=== PATIENT | female | born 1995 | race Caucasian/White ===

== ENCOUNTER 2019-07-01 11:05 | Emergency (ER) | payer OTHER ==
[2019-07-01 11:11] VITALS: BP 107/59; PULSE 61; TEMP 98.4; BMI 28.3
--- NOTE | 2019-07-01 11:53 | PDOC ---
History of Present Illness - General Chief Complaint: Sore Throat Stated Complaint: SORE THROAT Time Seen by Provider: 07/01/19 11:22 History Source: Patient - History of Present Illness Timing/Duration: reports: other Past History - Past Medical History Allergies/Adverse Reactions: Allergies Allergy/AdvReac Type Severity Reaction Status Date / Time No Known Allergies Allergy Verified 07/01/19 11:11 Home Medications: Ambulatory Orders Amoxicillin - [Amoxicillin 500mg Capsule -] 500 mg PO BID #14 capsule 07/01/19 COPD: No - Psycho Social/Smoking Cessation Hx Smoking History: Never smoked Hx Alcohol Use: No Drug/Substance Use Hx: No Review of Systems - Review of Systems Constitutional: No: Chills, Fever HEENTM: Yes: Throat Pain. No: Ear Pain Respiratory: Yes: Cough. No: Shortness of Breath *Physical Exam - Vital Signs Last Vital Signs Temp Pulse Resp BP Pulse Ox 98.4 F 61 14 107/59 L 98 07/01/19 11:09 07/01/19 11:09 07/01/19 11:09 07/01/19 11:09 07/01/19 11:09 - Physical Exam General Appearance: Yes: Appropriately Dressed, Apparent Distress HEENT: positive: Normal ENT Inspection, Normal Voice, TMs Normal, Pharynx Normal. negative: Scleral Icterus (R), Scleral Icterus (L) Neck: positive: Supple. negative: Lymphadenopathy (R), Lymphadenopathy (L) Respiratory/Chest: negative: Respiratory Distress Gastrointestinal/Abdominal: positive: Soft Integumentary: positive: Dry, Warm Neurologic: positive: Alert, Normal Mood/Affect Medical Decision Making - Medical Decision Making 07/01/19 11:48 24 yo F, no significant history, completed antibiotics for presumed strep 1 week ago that was diagnosed at an urgent care, states no swab was taken. States throat pain continues, worse when she swallows. No cough ear pain fever or chills. Child with similar symptoms see exam Sore throat ? viral Exam wnl -strep pending 07/01/19 13:04 Strep +. Patient's son also patient in ED and also positive for strep. Will start mother on another course of antibiotics as cannot rule out reinfection. Discharge - Discharge Information Problems reviewed: Yes Clinical Impression/Diagnosis: Strep pharyngitis Condition: Good Disposition: HOME - Additional Discharge Information Prescriptions: Amoxicillin - [Amoxicillin 500mg Capsule -] 500 mg PO BID #14 capsule - Follow up/Referral Referrals: Micah Chua MD [Primary Care Provider] - - Patient Discharge Instructions Patient Printed Discharge Instructions: Strep Throat - Post Discharge Activity Work/Back to School Note: Back to Work
[2019-07-01] MEDS ORDERED: IBUPROFEN 400 MG TABLET (FP) PO ONE ×2 (12:32→12:37)
== END 2019-07-01 13:10 | disposition home or self-care (01) ==
LOC: JERFT 11:05
DX: J02.0 Streptococcal pharyngitis (principal)
CPT/HCPCS: 87880; 99283-25

== ENCOUNTER 2019-11-22 14:32 | Emergency (ER) | payer OTHER ==
[2019-11-22 14:36] VITALS: BMI 28.3
[2019-11-22] MEDS ORDERED: ONDANSETRON 4 MG/2 ML VIAL IVPUSH ONE (15:42)
[2019-11-22] MEDS ORDERED: ACETAMINOPHEN 1000 MG/100 ML VIAL (NON FORMULARY) IVPB ONE (15:42)
[2019-11-22] MEDS ORDERED: FAMOTIDINE 20 MG/50 ML IVPB 20 MG/50 ML MG IVPB ONE ×2 (15:42→15:51)
[2019-11-22] MEDS ORDERED: ACETAMINOPHEN INJECTION 100 ML IVPB ONE (15:50)
[2019-11-22 16:21] LABS: BASO % 0.2 % (0-2.0); EOS % 0.3 % (0-4.5); HEMATOCRIT 35.7 % (32.4-45.2); HEMOGLOBIN 11.4 GM/dL (10.7-15.3); LYMPH % 15.9 % (8-40); MCH 25.7 pg (25.7-33.7); MEAN CELL VOLUME 80.6 fl (80-96); MEAN PLT VOLUME 9.2 fl (7.5-11.1); MONO % 5.7 % (3.8-10.2); NEUT % 77.9 % (42.8-82.8); PLATELET COUNT 260 K/MM3 (134-434); RBC 4.43 M/mm3 (3.60-5.2); RDW 14.2 % (11.6-15.6); WHITE BLOOD COUNT 10.8 K/mm3 (4.0-10.0)
[2019-11-22 16:48] LABS: ALBUMIN 3.2 g/dl (3.4-5.0); BILIRUBIN,TOTAL 0.6 mg/dL (0.2-1); BLOOD UREA NITROGEN 10.1 mg/dL (7-18); CALCIUM 9.1 mg/dL (8.5-10.1); CREATININE 0.8 mg/dL (0.55-1.3)
--- NOTE | 2019-11-22 16:58 | PDOC ---
History of Present Illness - General History Source: Patient Exam Limitations: No Limitations - History of Present Illness Initial Comments: 11/22/19 16:53 Patient is a 24-year-old female G3, P2 LMP / complaining of epigastric pain, burping x3 days. States her pain is sharp 5.5/10 which radiates to the back, and she gets nauseous when she eats hot food. States the pain goes up to 8/10 with burping, sneezing and with certain movements. She has taken nothing for her symptoms. She denies any cough, fever, chills, No COVID exposure. PMD: OBS 2 [facility] PMHX: as above PSOCHX: neg cig, drug, etoh ALL: NKDA Review of Systems: GENERAL/CONSTITUTIONAL: No fever or chills. No weakness. No weight change. HEAD, EYES, EARS, NOSE AND THROAT: No change in vision. No ear pain or discharge. No sore throat. CARDIOVASCULAR: No chest pain or shortness of breath. RESPIRATORY: No cough, wheezing, or hemoptysis. GASTROINTESTINAL: (+)nausea, vomiting, (-) diarrhea or constipation. No rectal bleeding. GENITOURINARY: No dysuria, frequency, or change in urination. MUSCULOSKELETAL: No joint or muscle swelling or pain. No neck or back pain. SKIN AND BREASTS: No rash or easy bruising. NEUROLOGIC: No headache, vertigo, loss of consciousness, or loss of sensation. PSYCHIATRIC: No depression or anxiety. ENDOCRINE: No increased thirst. No abnormal weight change. HEMATOLOGIC/LYMPHATIC: No anemia, easy bleeding, or history of blood clots. ALLERGIC/IMMUNOLOGIC: No hives or skin allergy. No latex allergy. GENERAL: [The patient is awake, alert, and fully oriented, in no acute distress.] HEAD: [Normal with no signs of trauma.] EYES: [Pupils equal, round and reactive to light, extraocular movements intact, sclera anicteric, conjunctiva clear.] ENT: [Ears normal, nares patent, oropharynx clear without exudates. Moist mucous membranes.] NECK: [Normal range of motion, supple without lymphadenopathy, JVD, or masses.] LUNGS: [Breath sounds equal, clear to auscultation bilaterally. No wheezes, and no crackles.] HEART: [Regular rate and rhythm, normal S1 and S2 without murmur, rub.] ABDOMEN: [Soft, (+) epigastric tenderness, normoactive bowel sounds. No guarding, no rebound. No masses.] EXTREMITIES: [Normal range of motion, no edema. No clubbing or cyanosis. No cords, erythema, or tenderness.] NEUROLOGICAL: [Cranial nerves II through XII grossly intact. Normal speech, normal gait.] PSYCH: [Normal mood, normal affect.] SKIN: [Warm, Dry, normal turgor, no rashes or lesions noted.] <Artem Hughes - Last Filed: 11/22/19 20:37> <Kimmy Clement - Last Filed: 11/27/19 08:32> - General Chief Complaint: Pain Stated Complaint: ABDOMINAL PAIN Time Seen by Provider: 11/22/19 15:30 Past History - Medical History COPD: No - Immunization History Immunization Up to Date: No - Psycho-Social/Smoking History Smoking History: Never smoked - Substance Abuse Hx (Audit-C & DAST Scrn) How often the patient has a drink containing alcohol: Never Score: In Men: 4 or > Positive; In Women: 3 or > Positive: 0 Screen Result (Pos requires Nsg. Audit-10AR): Negative <Artem Hughes - Last Filed: 11/22/19 20:37> <Kimmy Clement - Last Filed: 11/27/19 08:32> - Medical History Allergies/Adverse Reactions: Allergies Allergy/AdvReac Type Severity Reaction Status Date / Time No Known Allergies Allergy Verified 11/22/19 14:36 Home Medications: Ambulatory Orders No122/Iron/Folic Acid [ Multi Tablet] 1 each PO DAILY 11/22/19 *Physical Exam - Vital Signs Last Vital Signs Temp Pulse Resp BP Pulse Ox 98.6 F 58 L 18 123/62 99 11/22/19 14:34 11/22/19 14:34 11/22/19 14:34 11/22/19 14:34 11/22/19 14:34 <Artem Hughes - Last Filed: 11/22/19 20:37> - Vital Signs Last Vital Signs Temp Pulse Resp BP Pulse Ox 97.8 F 78 18 116/73 98 11/22/19 17:35 11/22/19 17:35 11/22/19 17:35 11/22/19 17:35 11/22/19 17:35 <Kimmy lCement - Last Filed: 11/27/19 08:32> ED Treatment Course - LABORATORY CBC & Chemistry Diagram: 11/22/19 15:50 11/22/19 15:50 - ADDITIONAL ORDERS Additional order review: Laboratory Results 11/22/19 15:50 Sodium 138 Potassium 4.0 Chloride 105 Carbon Dioxide 28 Anion Gap 5 L BUN 10.1 Creatinine 0.8 Est GFR (CKD-EPI)AfAm 119.60 Est GFR (CKD-EPI)NonAf 103.19 Random Glucose 121 H Calcium 9.1 Total Bilirubin 0.6 AST 10 L ALT 15 Alkaline Phosphatase 69 Total Protein 7.0 Albumin 3.2 L Lipase 83 11/22/19 15:50 RBC 4.43 MCV 80.6 MCHC 32.0 RDW 14.2 MPV 9.2 Neutrophils % 77.9 D Lymphocytes % 15.9 D Monocytes % 5.7 Eosinophils % 0.3 Basophils % 0.2 - Medications Given in the ED: ED Medications Discontinued Medications Generic Name Dose Route Start Last Admin Trade Name Cipriano PRN Reason Stop Dose Admin Acetaminophen 1,000 mg 11/22/19 15:42 11/22/19 16:18 Ofirmev Injection - IVPB 11/22/19 15:43 1,000 mg ONCE ONE Administration Famotidine/Sodium Chloride 20 mg in 50 mls @ 100 mls/hr 11/22/19 15:42 10/06 16:06 Pepcid 20 Mg Premixed Ivpb - IVPB 11/22/19 16:11 100 mls/hr ONCE ONE Administration Ondansetron HCl 4 mg 11/22/19 15:42 11/22/19 16:06 Zofran Injection IVPUSH 11/22/19 15:43 4 mg ONCE ONE Administration <Artem Hughes - Last Filed: 11/22/19 20:37> - LABORATORY CBC & Chemistry Diagram: 11/22/19 15:50 11/22/19 15:50 - ADDITIONAL ORDERS Additional order review: 11/22/19 15:50 RBC 4.43 MCV 80.6 MCHC 32.0 RDW 14.2 MPV 9.2 Neutrophils % 77.9 D Lymphocytes % 15.9 D Monocytes % 5.7 Eosinophils % 0.3 Basophils % 0.2 - Medications Given in the ED: ED Medications Discontinued Medications Generic Name Dose Route Start Last Admin Trade Name Cipriano PRN Reason Stop Dose Admin Acetaminophen 1,000 mg 11/22/19 15:42 11/22/19 16:18 Ofirmev Injection - IVPB 11/22/19 15:43 1,000 mg ONCE ONE Administration Famotidine/Sodium Chloride 20 mg in 50 mls @ 100 mls/hr 11/22/19 15:42 11/22/19 16:06 Pepcid 20 Mg Premixed Ivpb - IVPB 11/22/19 16:11 100 mls/hr ONCE ONE Administration Ondansetron HCl 4 mg 11/22/19 15:42 11/22/19 16:06 Zofran Injection IVPUSH 11/22/19 15:43 4 mg ONCE ONE Administration <Kimmy Clement - Last Filed: 11/27/19 08:32> Medical Decision Making - Medical Decision Making 11/22/19 16:53 Patient is a 24-year-old female G3, P2 LMP 5/16 complaining of epigastric pain, burping x3 days. States her pain is sharp 5.5/10 which radiates to the back, and she gets nauseous when she eats hot food. States the pain goes up to 8/10 with burping, sneezing and with certain movements. She has taken nothing for her symptoms. She denies any cough, fever, chills, No COVID exposure. Patient with symptoms that are consistent nausea vomiting in early . Will treat with Pepcid, Tylenol and IV fluids. Labs Reassess. Labs reviewed no acute findings. Patient feels improved after pain medication. I discussed the physical exam findings, ancillary test results and final diagnoses with the patient. I answered all of the patient's questions. The patient was satisfied with the care received and felt comfortable with the discharge plan and treatment plan. The Patient agrees to follow up with the primary care physician within 24-72 hours. <Artem Hughes - Last Filed: 11/22/19 20:37> - Medical Decision Making I reviewed the case with the mid-level practitioner and agree with the mid-level practitioner's assessment, diagnosis and disposition. <Kimmy Clement - Last Filed: 11/27/19 08:32> Discharge - Discharge Information Problems reviewed: Yes <Artem Hughes - Last Filed: 11/22/19 20:37> <Kimmy Clement - Last Filed: 11/27/19 08:32> - Discharge Information Clinical Impression/Diagnosis: Epigastric pain during , antepartum Nausea and vomiting Qualifiers: Vomiting type: unspecified Vomiting Intractability: unspecified Qualified Code(s): R11.2 - Nausea with vomiting, unspecified Condition: Stable Disposition: HOME - Patient Discharge Instructions Patient Printed Discharge Instructions: DI for Hyperemesis Gravidarum Additional Instructions: Your Discharge Instructions: You must call primary care physician within 24 hours to arrange follow-up. Return to the Emergency Department with any new, persistent or worsening sympto ms, for fever, chills, SOB, dizziness or any other concerning changes that may occur. You must follow-up with your OB doctor as per schedule.
[2019-11-22 17:36] VITALS: BP 116/73; PULSE 78; TEMP 97.8
== END 2019-11-22 17:37 | disposition home or self-care (01) ==
LOC: JER 14:32
PROC: 3E033NZ Introduction of Analgesics, Hypnotics, Sedatives into Peripheral Vein, Percutaneous Approach (ICD-10-PCS; principal; 2019-11-22)
PROC: 3E033GC Introduction of Other Therapeutic Substance into Peripheral Vein, Percutaneous Approach (ICD-10-PCS; 2019-11-22)
DX: R10.13 Epigastric pain (principal); R11.2 Nausea with vomiting, unspecified
CPT/HCPCS: 36415; 80053; 83690; 85025; 99284-25; J0131

== ENCOUNTER 2022-02-02 06:19 | Day surgery (SDC) | payer OTHER ==
[2022-01-31 17:13] VITALS: BMI 32.9
[2022-02-02] MEDS ORDERED: BUPIVACAINE HCL/PF 2.5 MG/ML - 30 ML VIAL IJ ONE (07:07)
[2022-02-02] MEDS ORDERED: EPINEPHrine 1:1,000 1,000 MCG/ML ML ONE (07:07)
[2022-02-02] MEDS ORDERED: MIDAZOLAM HCL 2 MG/2 ML SINGLE DOSE VIAL ONE (07:34)
[2022-02-02] MEDS ORDERED: PROPOFOL 20 ML ONE (07:38)
[2022-02-02] MEDS ORDERED: KETOROLAC TROMETHAMINE 30 MG/1 ML VIAL ONE (07:59)
[2022-02-02] MEDS ORDERED: ceFAZolin SODIUM 1 GM VIAL ONE (07:59)
[2022-02-02] MEDS ORDERED: DEXAMETHASONE SOD PHOSPHATE 4 MG/1 ML VIAL ONE (07:59)
[2022-02-02] MEDS ORDERED: ONDANSETRON 4 MG/2 ML VIAL ONE (07:59)
[2022-02-02] MEDS ORDERED: ACETAMINOPHEN INJECTION 100 ML IVPB ONE (08:43)
[2022-02-02] MEDS ORDERED: oxyCODONE HCL 5 MG TABLET PO PRN (08:48)
[2022-02-02] MEDS ORDERED: ONDANSETRON 4 MG/2 ML VIAL IVPUSH PRN (08:48)
[2022-02-02] MEDS ORDERED: ACETAMINOPHEN 1000 MG/100 ML BAG IVPB ONE (08:49)
[2022-02-02] MEDS ORDERED: FENTANYL CITRATE/PF 50 MCG/ML VIAL ONE (08:59)
[2022-02-02] MEDS ORDERED: LACTATED RINGERS SOLUTION 1,000 ML IV SCH (09:00)
[2022-02-02 09:32] VITALS: RESP 20; TEMP 97.5
[2022-02-02] MEDS ORDERED: oxyCODONE HCL 5 MG TABLET ONE (09:37)
[2022-02-02 10:06] VITALS: BP 113/62; PULSE 53
== END 2022-02-02 11:00 | disposition home or self-care (01) ==
LOC: FASU 06:19
PROVIDERS: ATTEND Orthopaedic Surgery Sports Medicine
PROC: 0SBC4ZZ Excision of Right Knee Joint, Percutaneous Endoscopic Approach (ICD-10-PCS; principal; 2022-02-02 07:58)
DX: S83.241A Other tear of medial meniscus, current injury, right knee, initial encounter (principal); M94.261 Chondromalacia, right knee; M65.9 Synovitis and tenosynovitis, unspecified
CPT/HCPCS: 81025; 94760; 97116-GP